=== PATIENT | female | born 1975 | race Caucasian/White ===

== ENCOUNTER 2016-07-25 15:50 | Emergency (ER) | payer MEDICAID ==
[~2016-07-25] VITALS: Ht 162.6 cm; Wt 94.7 kg
[~2016-07-25 15:50] MED LIST: AMOX500T2 PO; HYDR-3989 PO; IBUP-1724 PO
--- OUTSIDE RECORDS SUMMARY | 2016-07-25 15:54 | XMS REPORT | Continuity of Care Document ---
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 Role Phone ANNEL TAN Primary Care Physician [phone] Insurance Providers Payer Name Policy Number Subscriber Name Relationship [employer] [id number] Stacy Horowitz 01 Self / Same As Patient Chief Complaint and Reason for Visit Chief Complaint Knee Pain Reason for Visit [id number] Problems Medical Problems Problem Onset Date Status Paresthesia Unknown Active Knee pain, left Unknown Active Medications Medication Dose Route Sig Days/Qty Instructions Order Date Discontinued Date Status Hydrocodone-Acetaminophen 1 Tab PO Every 6 hours as needed 15 Qty for pain 11/08/13 Active Social History Social History Problem Response Recorded Date/Time Smoking Status Former smoker 11/08/2013 5:47am Query Response Start Date Stop Date Smoking Status Former smoker Hospital Discharge Instructions No hospital discharge instructions. Plan of Care Discharge Date 11/08/13 6:55am Disposition 01 HOME, SELF-CARE Condition at Discharge Stable Instructions/Education Provided Knee Pain (ED) Forms Provided Work Release Prescriptions See Medications Section Referrals ANNEL TAN LAWRENCE P MD Functional Status No functional status results. Allergies, Adverse Reactions, Alerts Allergen Type Severity Reaction Status Last Updated No Known Allergies Active 11/08/13 Immunizations No immunization records. Vital Signs Acute Vital Signs Vital Response Date/Time Blood Pressure 94/61 mm Hg 11/08/2013 6:40am Blood Pressure Mean 72 mm Hg 11/08/2013 6:40am Pulse 11/08/2013 6:40am Pulse Rate: ED 78 bpm 11/08/2013 6:40am Results No known relevant diagnostic tests, laboratory data and/or discharge summary. Procedures No known history of procedures. Encounters Encounter Location Date/Time Departed Emergency Room [facility] 11/08/13 5:40am Departed Emergency Room [facility] 10/17/13 8:58pm Departed Emergency Room [facility] 08/17/13 2:35pm Discharged Recurring [facility] 08/17/13 1:30pm Recent Diagnosis
--- OUTSIDE RECORDS SUMMARY | 2016-07-25 15:54 | XMS REPORT | Continuity of Care Document ---
Author Author [facility] Organization [facility] Address Unknown Phone Unavailable Support Name Relationship Address Phone ANNEL TAN MD Caregiver [address] [place] [phone] JENN DICKSON MD Caregiver [address] [place] [place] [address] ARISTIDES HOROWITZASHLEY GLEASONE Next Of Kin Unknown [phone] Insurance Providers Payer Name Policy Number Subscriber Name Relationship Self Pay Stacy Horowitz 18 Self Advance Directives Directive Response Recorded Date/Time Advanced Directives Type None 06/21/14 9:00am Problems Medical Problems Problem Onset Date Status Headache Unknown Active Headache Unknown Active Musculoskeletal chest pain Unknown Active Musculoskeletal chest pain Unknown Active Strain of left knee Unknown Active Strain of left knee Unknown Active Medications Medication Dose Route Sig Days/Qty Instructions Order Date Discontinued Date Status [Naprosyn] DAILY 09/12/09 06/19/10 Discontinued Acetaminophen 500 Mg PO NEEDED 06/19/10 08/06/10 Discontinued Acetaminophen 500 Mg PO NEEDED 11/10/12 Active Ibuprofen 200 Mg PO NEEDED 11/10/12 Active Diclofenac Sodium 1 Tab PO TWICE DAILY WITH MEALS 30 Qty 06/14/14 Active Tramadol HCl 50 Mg PO Every 6 Hours PRN PAIN 30 Qty 06/21/14 Active Social History Social History Problem Response Recorded Date/Time Chewing Tobacco Status No 11/09/2012 10:59am Hx Substance Use No 06/21/2014 9:00am Hx Alcohol Use No 06/21/2014 9:00am Has the pt used tobacco in the last 12 months Yes 11/09/2012 10:59am Tobacco Usage none 06/14/2014 10:07am Query Response Start Date Stop Date Smoking Status Former smoker Hospital Discharge Instructions No hospital discharge instructions. Plan of Care No plan of care. Functional Status Query Response Date Recorded Physical Hygiene Self June 21, 2014 9:00am Disabilities None June 21, 2014 9:00am Devices Used None June 21, 2014 9:00am Dressing Self June 21, 2014 9:00am Ambulation Self June 21, 2014 9:00am Diet Self June 21, 2014 9:00am Mental Status Alert Oriented June 21, 2014 9:00am Disabilities None June 21, 2014 9:00am Devices Used None June 21, 2014 9:00am Physical Hygiene Self June 21, 2014 9:00am Dressing Self June 21, 2014 9:00am Ambulation Self June 21, 2014 9:00am Diet Self June 21, 2014 9:00am Allergies, Adverse Reactions, Alerts Allergen Type Severity Reaction Status Last Updated Oxybutynin Allergy Intermediate N/V Active 06/21/14 Immunizations Name Given Type Hx Influenza Vaccination Y JAN 2010 Historical Hx Pneumococcal Vaccination No Historical Hx Influenza Vaccination Y JAN 2010 Historical Hx Tetanus Diptheria Y 2007 Historical Vital Signs Acute Vital Signs Vital Response Date/Time Temperature (Fahrenheit) 97.8 deg F (96.8 - 99.1) Temperature (Calculated Celsius) 36.28874 degrees C (36.0 - 37.3) Pulse Rate (adult) 75 bpm (60 - 100) Respiratory Rate 16 breaths/min (10 - 20) O2 Sat by Pulse Oximetry 97 % (90 - 100) Blood Pressure 120/74 mm Hg Height 5 ft 2 in Weight 225 lb Body Mass Index 41.0 kg/m^2 Results Test Source Date Result Interp. Ref. Range Comments D-Dimer June 14, 2014 9:03am < 150 NG/ML 0-230 <230 NG/ML D-DU= PRESUMPTIVE NEGATIVE FOR PE OR DVT>230 NG/ML D-DU=ADDITIONAL EVAL FOR PE OR DVT RECOMMENDED Activated Partial Thromboplast Time June 14, 2014 9:03am 31.9 SEC N 24- 36 Ordering r/o VTE Yes Prothromb Time International Ratio June 14, 2014 9:03am 1.06 N 0.81- 1.09 THERAPUTIC RANGE=2.00-3.00 FOR ANTI-THROMBOSIS THERAPUTIC RANGE=2.50- 3.50 FOR IMPLANTED VALVE JG-Mke-G-Type Natriuretic Peptide June 14, 2014 9:03am 32 PG/ML N 0- 175 Rule in cut points: <50 years old=450; 50-75 years old=900; >75 years old=1800; When utilizing ProBNP rule-in cut points, adjustment for impaired renal function is typically not required. Troponin I June 14, 2014 9:03am < 0.012 ng/ml 0-0.12 Alanine Aminotransferase (ALT/SGPT) June 14, 2014 9:03am 30 U/L N 9-52 Aspartate Amino Transf (AST/SGOT) June 14, 2014 9:03am 20 U/L N 14-36 Albumin/Globulin Ratio June 14, 2014 9:03am 1.1 RATIO N 1.1-2.2 Globulin June 14, 2014 9:03am 3.4 G/DL N 2.4-3.6 Albumin June 14, 2014 9:03am 3.9 G/DL N 3.5-5.0 Total Protein June 14, 2014 9:03am 7.3 G/DL N 6.3-8.2 Alkaline Phosphatase June 14, 2014 9:03am 99 U/L N 38-126 Total Bilirubin June 14, 2014 9:03am 0.50 MG/DL N 0.20-1.30 Calcium Level June 14, 2014 9:03am 9.2 MG/DL N 8.4-10.2 Calculated Osmolality June 14, 2014 9:03am 274 MOSM/KG N 261-280 Glucose Level June 14, 2014 9:03am 102 MG/DL N 65-110 Glomerular Filtration Rate Calc June 14, 2014 9:03am 81 - BUN/Creatinine Ratio June 14, 2014 9:03am 13 RATIO N 6-26 Creatinine June 14, 2014 9:03am 0.8 MG/DL N 0.7-1.2 Blood Urea Nitrogen June 14, 2014 9:03am 10.0 MG/DL N 7-17 Anion Gap June 14, 2014 9:03am 13 MEQ/L N 5-15 Carbon Dioxide Level June 14, 2014 9:03am 25 MEQ/L N 22-30 Chloride Level June 14, 2014 9:03am 105 MEQ/L N 98-107 Potassium Level June 14, 2014 9:03am 4.3 MEQ/L N 3.6-5 Sodium Level June 14, 2014 9:03am 143 MEQ/L N 134-144 Turbidity June 14, 2014 9:03am < 20 0-20 Chemistry Specimen Hemolysis June 14, 2014 9:03am < 15 0-25 0-25: No Hemolysis.26-70: Slight Hemolysis - can falsely elevate K and Urine Protein. 71-285: Moderate Hemolysis - can falsely elevate K, Troponin I, CA 19-9, PTH, CSF GLucose, and Urine Protein, and can falsely decrease Phenytoin. 286-999: Gross Hemolysis - can falsely elevate K, Troponin I, CA 19-9, PTH, CSF Glucose, and Urine Protine, and can falsely decrease Phenytoin. Recommend specimen recollection. Icterus Index June 14, 2014 9:03am < 2 0-7 Immature Granulocyte # (Auto) June 14, 2014 9:03am 0.01 T/MM3 N 0.00- 0.03 Basophils # (Auto) June 14, 2014 9:03am 0.0 T/MM3 N 0-0.2 Eosinophils # (Auto) June 14, 2014 9:03am 0.1 T/MM3 N 0-0.5 Monocytes # (Auto) June 14, 2014 9:03am 0.4 T/MM3 N 0-0.8 Lymphocytes # (Auto) June 14, 2014 9:03am 1.6 T/MM3 N 1-4.8 Neutrophils # (Auto) June 14, 2014 9:03am 2.7 T/MM3 N 1.8-7.7 Immature Granulocyte % (Auto) June 14, 2014 9:03am 0.2 % N 0.0-0.5 Basophils (%) (Auto) June 14, 2014 9:03am 0.6 % N 0-2 Eosinophils (%) (Auto) June 14, 2014 9:03am 2.3 % N 0-4 Monocytes (%) (Auto) June 14, 2014 9:03am 8.2 % N 0-9.0 Lymphocytes (%) (Auto) June 14, 2014 9:03am 32.8 % N 23-45 Neutrophils (%) (Auto) June 14, 2014 9:03am 55.9 % N 33-66 Mean Platelet Volume June 14, 2014 9:03am 9.3 UM3 L 9.4-12.4 Platelet Count June 14, 2014 9:03am 253 T/MM3 N 130-400 RDW Standard Deviation June 14, 2014 9:03am 39.1 FL N 36.9-50.2 Mean Corpuscular Hemoglobin Concent June 14, 2014 9:03am 34.0 GM/DL N 31-37 Mean Corpuscular Hemoglobin June 14, 2014 9:03am 29.6 UUG N 26-34 Mean Corpuscular Volume June 14, 2014 9:03am 87.2 UM3 N 80-100 Hematocrit June 14, 2014 9:03am 41.5 % N 36-46 Hemoglobin June 14, 2014 9:03am 14.1 GM/DL N 12-16 Red Blood Count June 14, 2014 9:03am 4.76 M/MM3 N 4.00-5.20 White Blood Count June 14, 2014 9:03am 4.8 T/MM3 N 4.5-11.0 Bacterial Antigen Specimen Source November 10, 2012 11:50am Csf - CSF Basophils November 10, 2012 11:50am 0 % - COMMENT [facility] WILL CALL CSF Color November 10, 2012 11:50am Colorless - COMMENT [facility] WILL CALL CSF Eosinophils % November 10, 2012 11:50am 0 % - COMMENT [facility] WILL CALL CSF Glucose November 10, 2012 11:50am 47 MG/DL N 40-70 COMMENT [facility] WILL CALL CSF Lymphocytes November 10, 2012 11:50am 100 % - COMMENT [facility] WILL CALL CSF Monocytes November 10, 2012 11:50am 0 % - COMMENT [facility] WILL CALL CSF Neutrophils November 10, 2012 11:50am 0 % - COMMENT [facility] WILL CALL CSF RBC November 10, 2012 11:50am 22 /MM3 H 0-0 COMMENT [facility] WILL CALL CSF Total Nucleated Cell Count November 10, 2012 11:50am 1 /MM3 N 0-5 COMMENT [facility] WILL CALL CSF Total Protein November 10, 2012 11:50am 39 MG/DL N 12-60 COMMENT [facility] WILL CALL CSF Turbidity November 10, 2012 11:50am Clear - COMMENT [facility] WILL CALL Group B Streptococcus Antigen November 10, 2012 11:50am Negative - Influenza Type B Antigen November 10, 2012 11:50am Negative - N. meningitidis B/E. coli K1 November 10, 2012 11:50am Negative - N. meningitidis C/W 135 November 10, 2012 11:50am Negative - Streptococcus pneumoniae Antigen November 10, 2012 11:50am Negative - Urine Bilirubin September 12, 2009 10:53am Negative - Has specimen been collected/obtained? Y Urine Blood September 12, 2009 10:53am Negative - Has specimen been collected/obtained? Y Urine Collection Type September 12, 2009 10:53am Voided - Has specimen been collected/obtained? Y Urine Color September 12, 2009 10:53am Yellow - Has specimen been collected/obtained? Y Urine Glucose (UA) September 12, 2009 10:53am Negative - Has specimen been collected/obtained? Y Urine Ketones September 12, 2009 10:53am Negative - Has specimen been collected/obtained? Y Urine Leukocyte Esterase September 12, 2009 10:53am Negative - Has specimen been collected/obtained? Y Urine Nitrite September 12, 2009 10:53am Negative - Has specimen been collected/obtained? Y Urine Test June 20, 2010 9:55am Negative - Has specimen been collected/obtained? Y Urine Protein September 12, 2009 10:53am Negative - Has specimen been collected/obtained? Y Urine Specific [place] September 12, 2009 10:53am 1.005 L - Has specimen been collected/obtained? Y Urine Turbidity September 12, 2009 10:53am Clear - Has specimen been collected/obtained? Y Urine Urobilinogen September 12, 2009 10:53am Normal EU/DL - Has specimen been collected/obtained? Y Urine pH September 12, 2009 10:53am 7.0 - Has specimen been collected/ obtained? Y Neisseria meningitidis A/Y Antigen November 10, 2012 11:50am Negative - CSF Other Cells % November 10, 2012 11:50am 0 % - COMMENT [facility] WILL CALL Urine Microscopic Not Indicated September 12, 2009 10:53am Not indicated - Has specimen been collected/obtained? Y Gram Stain Cerebral Spinal Fluid November 10, 2012 11:50am Name: STACY HOROWITZ Unit #: [id number] : 1975 Sex: F Loc / Svc: ED DOS: 06/21/14 Signed Report #: [id number] DIAGNOSTIC IMAGING REPORT TYPE OF EXAM: KNEE LEFT 3 VIEWS Dictated By: LAURO RODRIGUEZ MD Indication: ITS.REASON: LEFT KNEE PAIN after a fall KNEE LEFT 3 VIEWS Comparison: None Findings: There is no acute fracture, dislocation or malalignment identified. There is a small calcific fragment adjacent to the medial aspect of the tibial plateau suggesting old trauma or old MCL injury. Mild medial compartment joint space narrowing. Small tricompartmental osteophytes. Impression: No acute osseous abnormality. . Procedures Procedure Status Date Provider(s) HYDRATE IV INFUSION ADD-ON completed 06/14/14 HYDRATE IV INFUSION ADD-ON completed 06/14/14 HYDRATE IV INFUSION ADD-ON completed 06/14/14 THER/PROPH/DIAG INJ IV PUSH completed 06/14/14 TX/PRO/DX INJ NEW DRUG ADDON completed 06/14/14 Encounters Encounter Location Date/Time Departed Emergency Room [facility] 06/21/14 8:59am Departed Emergency Room [facility] 06/14/14 8:46am Recent Diagnosis
--- OUTSIDE RECORDS SUMMARY | 2016-07-25 15:54 | XMS REPORT | Continuity of Care Document ---
Author Author [facility] Organization [facility] Address Unknown Phone Unavailable Support Name Relationship Address Phone ANNEL TAN MD Caregiver [address] [place] [address] Unavailable JENN DICKSON MD Caregiver [address] [place] [address] Unavailable JERO HOROWITZ Next Of Kin Unknown [phone] Insurance Providers Guarantor Stacy Horowitz Address [address] [place] [address] Email DENIED 16 Payer [facility] Policy Number [id number] Subscriber's Name Stacy Horowitz Relationship 18 Self Effective Date 16 Expiration Date 16 Advance Directives Directive Response Recorded Date/Time Advanced Directives Type None 05/15/16 6:00am Chief Complaint and Reason for Visit Chief Complaint Toothache Reason for Visit Infected dental caries Problems Active Problems Medical Problem Onset Date Status Flank pain Unknown Acute Headache Unknown Acute Headache Unknown Acute Musculoskeletal chest pain Unknown Acute Musculoskeletal chest pain Unknown Acute Strain of left knee Unknown Acute Strain of left knee Unknown Acute Upper respiratory infection Unknown Acute Past Problems Medical Problem Onset Date Infected dental caries Unknown Medications Current Home Medications Medication Dose Units Route Directions Days Qty Instructions Start Date Acetaminophen/Hydrocodone Bitart ([place] 5-325 Tablet) 5-325 Tablet 1-2 Tab Oral Every 6 Hours as needed for Pain 20 Tablet 05/15/16 Amoxicillin 500 Mg Tablet 500 Mg Oral Three Times A Day 10 Days 11/21 Ibuprofen 200 Mg Tablet 2 Tab Oral Every 4 Hours as needed for Pain 07/03/15 Past Home Medications Medication Directions Ordered Status Acetaminophen (Tylenol Extra Strength) 500 Mg Tablet, 500 Mg Oral As Needed 06/19/10 Discontinued Benzonatate 100 Mg Capsule, 1 Cap Oral Three Times A Day as needed for Cough 12/16/14 Discontinued Ibuprofen 800 Mg Tablet, 1 Tab Oral Every 8 Hours as needed for Pain Discontinued Metoclopramide Hcl (Reglan) 10 Mg Tablet, 10 Mg Oral Four Times Daily Discontinued Naprosyn , Daily 09/12/09 Discontinued No Routine Meds , 11/22/14 Discontinued Social History Social History Problem Response Recorded Date/Time Onset Date Status Chewing Tobacco Status No 11/09/2012 10:59am Not Applicable Not Applicable Hx Substance Use No 05/15/2016 6:05am Not Applicable Not Applicable Hx Alcohol Use No 05/15/2016 6:05am Not Applicable Not Applicable Has the pt used tobacco in the last 12 months Yes 11/09/2012 10:59am Not Applicable Not Applicable Tobacco Usage none 06/14/2014 10:07am Not Applicable Not Applicable Query Response Start Date Stop Date Smoking Status Current every day smoker Hospital Discharge Instructions No hospital discharge instructions. Plan of Care Discharge Date 05/15/16 6:30am Disposition 01 DISCHARGED HOME, SELF-CARE Condition at Discharge Stable Instructions/Education Provided Dental Abscess (ED) Prescriptions See Medication Section Care Plan and Goals Physician Care Plan Problem: Right upper dental pain Goal: Follow up with primary care provider Instructions: Take medications and follow care plan as discussed/written Functional Status No functional status results. Allergies, Adverse Reactions, Alerts Allergen Type Severity Reaction Status Last Updated Oxybutynin Allergy Intermediate N/V Active 05/15/16 Immunizations Query Response on File Recorded Date/Time Hx Influenza Vaccination No 12/16/14 9:55pm Hx Pneumococcal Vaccination No 12/16/14 9:55pm Hx Influenza Vaccination No 12/16/14 9:55pm Hx Tetanus Diptheria Y 2008 12/16/14 9:55pm Influenza Vaccine Hx UNKNOWN 05/15/16 6:05am Tdap Vaccine Hx NOT CURRENT 12/29/15 3:55pm Vital Signs Acute Vital Signs Vital Response Date/Time Temperature (Fahrenheit) 97.7 deg F (96.8 - 99.1) 05/15/2016 6:30am Temperature (Calculated Celsius) 36.22211 degrees C (36.0 - 37.3) 05/15/2016 6:30am Pulse Rate (adult) 74 bpm (60 - 100) 05/15/2016 6:30am Respiratory Rate 14 breaths/min (10 - 20) 05/15/2016 6:30am O2 Sat by Pulse Oximetry 98 % (90 - 100) 05/15/2016 6:30am Blood Pressure 166/94 mm Hg 05/15/2016 6:30am Height (Feet) 5 feet 05/15/2016 6:00am Height (Inches) 2.00 inches 05/15/2016 6:00am Weight (Kilograms) 99.100 kg 05/15/2016 6:00am Body Mass Index (BMI) 39.0 05/15/2016 6:00am Results No known relevant diagnostic tests, laboratory data and/or discharge summary. Procedures No known history of procedures. Encounters Encounter Location Arrival/Admit Date Discharge/Depart Date Attending Provider Departed Emergency Room [facility] 05/15/16 5:57am 05/15/16 6: 30am JENN DICKSON MD Recent Diagnosis
--- OUTSIDE RECORDS SUMMARY | 2016-07-25 15:54 | XMS REPORT | Continuity of Care Document ---
Author Author [facility] Organization [facility] Address Unknown Phone Unavailable Support Name Relationship Address Phone BRIANA CLARKE MD Caregiver [address] [address] ANNEL TAN MD Caregiver [address] [place] [phone] CARLOS MANUEL JERO GUY Next Of Kin Unknown [phone] Insurance Providers Payer Name Policy Number Subscriber Name Relationship Self Pay Stacy Horowitz 18 Self Problems Medical Problems Problem Onset Date Status Headache Unknown Active Headache Unknown Active Musculoskeletal chest pain Unknown Active Musculoskeletal chest pain Unknown Active Medications Medication Dose Route Sig Days/Qty Instructions Order Date Discontinued Date Status [Naprosyn] DAILY 09/12/09 06/19/10 Discontinued Acetaminophen 500 Mg PO NEEDED 06/19/10 08/06/10 Discontinued Acetaminophen 500 Mg PO NEEDED 11/10/12 Active Ibuprofen 200 Mg PO NEEDED 11/10/12 Active Diclofenac Sodium 1 Tab PO TWICE DAILY WITH MEALS 30 Qty 06/14/14 Active Social History Social History Problem Response Recorded Date/Time Chewing Tobacco Status No 11/09/2012 10:59am Hx Substance Use No 06/14/2014 8:46am Hx Alcohol Use No 06/14/2014 8:46am Has the pt used tobacco in the last 12 months Yes 11/09/2012 10:59am Tobacco Usage none 06/14/2014 10:07am Query Response Start Date Stop Date Smoking Status Former smoker Hospital Discharge Instructions No hospital discharge instructions. Plan of Care No plan of care. Functional Status Query Response Date Recorded Physical Hygiene Self June 14, 2014 8:46am Disabilities Visual June 14, 2014 8:46am Devices Used Glasses June 14, 2014 8:46am Dressing Self June 14, 2014 8:46am Ambulation Self June 14, 2014 8:46am Diet Self June 14, 2014 8:46am Mental Status Alert Oriented June 14, 2014 8:46am Disabilities Visual June 14, 2014 8:46am Devices Used Glasses June 14, 2014 8:46am Physical Hygiene Self June 14, 2014 8:46am Dressing Self June 14, 2014 8:46am Ambulation Self June 14, 2014 8:46am Diet Self June 14, 2014 8:46am Allergies, Adverse Reactions, Alerts Allergen Type Severity Reaction Status Last Updated Oxybutynin Allergy Intermediate N/V Active 06/14/14 Immunizations Name Given Type Hx Influenza Vaccination Y JAN 2010 Historical Hx Pneumococcal Vaccination No Historical Hx Influenza Vaccination Y JAN 2010 Historical Hx Tetanus Diptheria Y 2007 Historical Vital Signs Acute Vital Signs Vital Response Date/Time Temperature (Fahrenheit) 97.3 deg F (96.8 - 99.1) Temperature (Calculated Celsius) 36.88340 degrees C (36.0 - 37.3) Pulse Rate (adult) 79 bpm (60 - 100) Respiratory Rate 16 breaths/min (10 - 20) O2 Sat by Pulse Oximetry 98 % (90 - 100) Blood Pressure 117/70 mm Hg Height 5 ft 2 in Weight 227 lb Body Mass Index 41.0 kg/m^2 Results [...] ANTI-THROMBOSIS THERAPUTIC RANGE=2.50- 3.50 FOR IMPLANTED VALVE FY-Iql-I-Type Natriuretic Peptide June 14, 2014 9:03am 32 [...] Has specimen been collected/obtained? Y Urine Specific [place] September 12, 2009 10:53am 1.005 L - [...] 0 % - COMMENT [facility] WILL CALL Urine Microscopic Not Indicated September 12, 2009 10:53am Not indicated - Has specimen been collected/obtained? Y Gram Stain Cerebral Spinal Fluid November 10, 2012 11:50am Name: STACY HOROWITZ Unit #: [id number] : 1975 Sex: F Loc / Svc: ED DOS: 06/14/14 Signed Report #: [id number] DIAGNOSTIC IMAGING REPORT TYPE OF EXAM: CHEST 1 VIEW Dictated By: LAURO RODRIGUEZ MD Indication: ITS.REASON: chest pain CHEST 1 VIEW: Comparison: None FINDINGS: The lungs are clear. There is no abnormal airspace opacity, pleural effusion or pneumothorax identified. The heart size, pulmonary vasculature and mediastinum are within normal limits. No significant skeletal abnormality is seen. IMPRESSION: No acute cardiopulmonary abnormality. . Procedures No known history of procedures. Encounters Encounter Location Date/Time Registered Emergency Room [facility] 06/14/14 8:46am Recent Diagnosis
--- OUTSIDE RECORDS SUMMARY | 2016-07-25 15:54 | XMS REPORT | Continuity of Care Document ---
Author Author [facility] Organization [facility] Address Unknown Phone Unavailable Care Team Providers Care Gill Box Fixer Name Role Phone ANNEL TAN MD Primary Care Physician [phone] Insurance Providers Payer Name Policy Number Subscriber Name Relationship Murtaza [employer] [id number] Stacy Horowitz 19 Self Problems Medical Problems Problem Onset Date Status Headache Unknown Active Headache Unknown Active Medications Medication Dose Route Sig Days/Qty Instructions Order Date Discontinued Date Status [Naprosyn] DAILY 09/12/09 06/19/10 Discontinued Acetaminophen 500 Mg PO NEEDED 06/19/10 08/06/10 Discontinued Acetaminophen 500 Mg PO NEEDED 11/10/12 Active Ibuprofen 200 Mg PO NEEDED 11/10/12 Active Social History Social History Problem Response Recorded Date/Time Smoking Status Current every day smoker 01/10/2014 3:54pm When did patient START smoking? AGE 16 01/10/2014 3:54pm Chewing Tobacco Status No 11/09/2012 10:59am Hx Substance Use No 01/10/2014 3:54pm Hx Alcohol Use Y 1X EVERY 3-4 MONTHS 01/10/2014 3:54pm Has the pt used tobacco in the last 12 months Yes 11/09/2012 10:59am Query Response Start Date Stop Date Smoking Status Current every day smoker Hospital Discharge Instructions No hospital discharge instructions. Plan of Care No plan of care. Functional Status Query Response Date Recorded Physical Hygiene Self January 10, 2014 3:54pm Disabilities Visual January 10, 2014 3:54pm Devices Used Glasses January 10, 2014 3:54pm Dressing Self January 10, 2014 3:54pm Ambulation Self January 10, 2014 3:54pm Diet Self January 10, 2014 3:54pm Mental Status Alert Oriented January 10, 2014 3:54pm Disabilities Visual January 10, 2014 3:54pm Devices Used Glasses January 10, 2014 3:54pm Physical Hygiene Self January 10, 2014 3:54pm Dressing Self January 10, 2014 3:54pm Ambulation Self January 10, 2014 3:54pm Diet Self January 10, 2014 3:54pm Allergies, Adverse Reactions, Alerts Allergen Type Severity Reaction Status Last Updated Oxybutynin Allergy Intermediate N/V Active 01/10/14 Immunizations Name Given Type Hx Influenza Vaccination Y JAN 2010 Historical Hx Pneumococcal Vaccination No Historical Hx Influenza Vaccination Y JAN 2010 Historical Hx Tetanus Diptheria Y 2007 Historical Vital Signs Acute Vital Signs Vital Response Date/Time Temperature (Fahrenheit) 97.3 deg F (96.8 - 99.1) Temperature (Calculated Celsius) 36.47547 degrees C (36.0 - 37.3) Pulse Rate (adult) 98 bpm (60 - 100) Respiratory Rate 16 breaths/min (10 - 20) O2 Sat by Pulse Oximetry 96 % (90 - 100) Blood Pressure 130/76 mm Hg Height 5 ft 2 in Weight 220 lb Body Mass Index 40.0 kg/m^2 Results Test Source Date Result Interp. Ref. Range Comments Bacterial Antigen Specimen Source November 10, 2012 [...] Has specimen been collected/obtained? Y Urine Specific [place] September 12, 2009 10:53am 1.005 L - [...] 10, 2012 11:50am 0 % - COMMENT [facility] WILL CALL Urine Microscopic Not Indicated September 12, 2009 10:53am Not indicated - Has specimen been collected/obtained? Y Gram Stain Cerebral Spinal Fluid November 10, 2012 11:50am Procedures No known history of procedures. Encounters Encounter Location Date/Time Departed Emergency Room [facility] 01/10/14 3:25pm Recent Diagnosis
--- OUTSIDE RECORDS SUMMARY | 2016-07-25 15:54 | XMS REPORT | Continuity of Care Document ---
Author Author [facility] Organization [facility] Address Unknown Phone Unavailable Care Team Providers Care Loom Starter Name Role Phone ANNEL TAN MD PP Unavailable Insurance Providers Payer Name Policy Number Subscriber Name Relationship Murtaza [employer] [id number] Stacy Horowitz 19 Self Problems No Known Problems or Medical conditions. Family History History Response Recorded Date/Time HX of Orthopedic Surgeries Y LT KNEE SCOPE 11/09/12 10:59am Hx Abdominal Surgery N 11/09/12 10:59am HX Cerebrovascular Accident N 11/09/12 10:59am Hx Seizures N 11/09/12 10:59am Hx Angina N 11/09/12 10:59am Hx Congestive Heart Failure N 11/09/12 10:59am Hx Heart Attack N 11/09/12 10:59am Hx Hypertension N HX OF IN THE PAST 11/09/12 10:59am Hx Chronic Obstructive Pulmonary Disease (COPD) Y 11/09/12 10:59am Hx Diabetes Y 'EARLY ONSET BUT NOT FULL BLOWN YET' 11/09/12 10:59am Hx Clotting Problems N 11/09/12 10:59am Hx Cancer N 11/09/12 10:59am Hx MRSA N 11/09/12 10:59am HX of Cardiac Surgeries N 11/09/12 10:59am HX of Reproductive Surgeries Y TUBAL LIGATION 11/09/12 10:59am HX of Endocrine Surgeries N 11/09/12 10:59am HX of Throat Surgery N 11/09/12 10:59am HX of Neurological Surgeries N 11/09/12 10:59am HX of Genitourinary Surgeries N 11/09/12 10:59am Neurological migraines headaches concussion 12/17/10 11:53am Social History History Response Recorded Date/Time Smoking Status Current every day smoker 11/09/12 10:59am Chewing Tobacco Status N 11/09/12 10:59am Hx Substance Use N 08/05/13 10:59am Hx Alcohol Use Y 1X EVERY 3-4 MONTHS 11/09/12 10:59am Has the pt used tobacco in the last 12 months Y 11/09/12 10:59am Allergies, Adverse Reactions, Alerts Allergen Type Severity Reaction Last Updated Oxybutynin Allergy Intermediate N/V 12/17/10 Medications Medication Dose Units Route Sig Qty Days Cyclobenzaprine Hcl (Flexeril) 5 Mg PO PRN Ibuprofen 200 Mg PO PRN Acetaminophen (Tylenol Extra Strength) 500 Mg PO PRN Immunizations Name Given Type Hx Influenza Vaccination Y JAN 2010 H Hx Pneumococcal Vaccination N H Response Recorded Date/Time Status not known Unknown Results No Known Relevant Diagnostic Tests, Laboratory Data and/or Discharge Summary. Procedures Procedure Code Date KNEE ARTHROSCOPY/SURGERY 55859 06/20/10 KNEE ARTHROSCOPY/SURGERY 46593 06/20/10 EXPLORATION OF KNEE JOINT [id number] 06/20/10 Gram Stain 11/10/12 Encounters Encounter Location Date/Time Departed Emergency Room [facility] 12/03/11 10:51am
[2016-07-25 15:55] VITALS: BP 144/77; PULSE 105; RESP 20; TEMP 98.1; O2SAT 97; Ht 162.6 cm; Wt 94.7 kg
--- OUTSIDE RECORDS SUMMARY | 2016-07-25 16:24 | XMS REPORT | Continuity of Care Document ---
Author Author [facility] Organization [facility] Address Unknown Phone Unavailable Support Name Relationship Address Phone BRIANA CLAREK MD Caregiver [address] [address] ANNEL TAN MD Caregiver [address] [place] [phone] CARLOS MANUEL JERO GUY Next Of Kin Unknown [phone] Insurance Providers Payer Name Policy Number Subscriber [...] F (96.8 - 99.1) Temperature (Calculated Celsius) 36.28644 degrees C (36.0 - 37.3) Pulse Rate [...] ANTI-THROMBOSIS THERAPUTIC RANGE=2.50- 3.50 FOR IMPLANTED VALVE JE-Wmq-[id number]-Type Natriuretic Peptide June 14, 2014 9:03am 32 [...] Has specimen been collected/obtained? Y Urine Specific [place] September 12, 2009 10:53am 1.005 L - [...] 2012 11:50am Name: STACY HOROWITZ Unit #: [id number] : [id number] Sex: F Loc / Svc: ED DOS: 06/14/14 Signed Report #: [id number] DIAGNOSTIC IMAGING REPORT TYPE OF EXAM: CHEST [...] Encounters Encounter Location Date/Time Registered Emergency Room [facility] 06/14/14 8:46am Recent Diagnosis
--- OUTSIDE RECORDS SUMMARY | 2016-07-25 16:25 | XMS REPORT | Continuity of Care Document ---
Author Author [facility] Organization [facility] Address Unknown Phone Unavailable Care Team Providers Care Casino Assistant Manager Name Role Phone ANNEL TAN Primary Care Physician [phone] Insurance Providers Payer Name Policy Number Subscriber Name Relationship [employer] [id number] Stacy Horowitz 2 Self / Same As Patient Chief Complaint and Reason for Visit Chief Complaint Knee Pain Reason for Visit [id number] Problems Medical Problems Problem Onset Date Status [...] Encounters Encounter Location Date/Time Departed Emergency Room [facility] 11/08/13 5:40am Departed Emergency Room [facility] 10/17/13 8:58pm Departed Emergency Room [facility] 08/17/13 2:35pm Discharged Recurring [facility] 08/17/13 1:30pm Recent Diagnosis
--- OUTSIDE RECORDS SUMMARY | 2016-07-25 16:25 | XMS REPORT | Continuity of Care Document ---
Author Author [facility] Organization [facility] Address Unknown Phone Unavailable Support Name Relationship Address Phone ANNEL TAN MD Caregiver [address] [phone] JENN DICKSON MD Caregiver [address] [place] [address] ARISTIDES HOROWITZASHLEY GLEASONE Next Of Kin Unknown [phone] Insurance Providers Payer Name Policy Number Subscriber [...] F (96.8 - 99.1) Temperature (Calculated Celsius) 36.03750 degrees C (36.0 - 37.3) Pulse Rate [...] ANTI-THROMBOSIS THERAPUTIC RANGE=2.50- 3.50 FOR IMPLANTED VALVE SL-Ywg-T-Type Natriuretic Peptide June 14, 2014 9:03am 32 [...] Has specimen been collected/obtained? Y Urine Specific [place] September 12, 2009 10:53am 1.005 L - [...] 10, 2012 11:50am 0 % - COMMENT [facility] WILL CALL Urine Microscopic Not Indicated September 12, 2009 10:53am Not indicated - Has specimen been collected/obtained? Y Gram Stain Cerebral Spinal Fluid November 10, 2012 11:50am Name: STACY HOROWITZ Unit #: [id number] : 1975 Sex: F Loc / Svc: ED DOS: 06/21/14 Signed Report #: [id number] DIAGNOSTIC IMAGING REPORT TYPE OF EXAM: KNEE [...] Encounters Encounter Location Date/Time Departed Emergency Room [facility] 06/21/14 8:59am Departed Emergency Room [facility] 06/14/14 8:46am Recent Diagnosis
--- OUTSIDE RECORDS SUMMARY | 2016-07-25 16:25 | XMS REPORT | Continuity of Care Document ---
Author Author [facility] Organization [facility] Address Unknown Phone Unavailable Care Team Providers Care Software Consultant Name Role Phone ANNEL TAN MD PP Unavailable Insurance Providers Payer Name Policy Number Subscriber Name Relationship Murtaza [employer] [id number] Stacy Horowitz 19 Self Problems No Known [...] Summary. Procedures Procedure Code Date KNEE ARTHROSCOPY/SURGERY 33832 06/20/10 KNEE ARTHROSCOPY/SURGERY 00237 06/20/10 EXPLORATION OF KNEE JOINT [id number] 06/20/10 Gram Stain 11/10/12 Encounters Encounter Location Date/Time Departed Emergency Room [facility] 12/03/11 10:51am
--- OUTSIDE RECORDS SUMMARY | 2016-07-25 16:25 | XMS REPORT | Continuity of Care Document ---
Author Author [facility] Organization [facility] Address Unknown Phone Unavailable Care Team Providers Care Highway Traffic Control Technician Name Role Phone ANNEL TAN MD Primary Care Physician [phone] Insurance Providers Payer Name Policy Number Subscriber Name Relationship Murtaza [employer] [id number] Stacy Horowitz 19 Self Problems Medical Problems [...] F (96.8 - 99.1) Temperature (Calculated Celsius) 36.92471 degrees C (36.0 - 37.3) Pulse Rate [...] Has specimen been collected/obtained? Y Urine Specific [place] September 12, 2009 10:53am 1.005 L - [...] 10, 2012 11:50am 0 % - COMMENT [facility] WILL CALL Urine Microscopic Not Indicated September 12, 2009 10:53am Not indicated - Has specimen been collected/obtained? Y Gram Stain Cerebral Spinal Fluid November 10, 2012 11:50am Procedures No known history of procedures. Encounters Encounter Location Date/Time Departed Emergency Room [facility] 01/10/14 3:25pm Recent Diagnosis
--- NOTE | 2016-07-25 16:33 | ERPDOC ---
Departure Disposition Decision Date: Jul 25, 2016 Disposition Decision Time: 17:07 Disposition: 01 DISCHARGED HOME, SELF-CARE Impression Impression Impression: Primary Impression: Left knee pain Chronicity: acute Qualified Codes: M25.562 - Pain in left knee Severity: Moderate Condition: Stable Seen By: Mid-level only Referrals: ANNEL TAN MD (PCP) Patient Instructions: Knee Pain (ED) Problems/Meds/Labs Reviewed?: Yes Medications reviewed and manag: Yes Additional Instructions: I do want you to ice and elevate the knee. May wear and lulu wrap or your knee brace as needed for comfort. If this is not improving at all then please follow up with your primary care provider if needed. Follow up care ordered?: Yes Mental Status: Alert HPI - Lower Extremity General Chief Complaint: Fall Stated Complaint: BACK PAIN, LFT KNEE PAIN Time Seen by Provider: 15:55 Source: patient Exam Limitations: no limitations HPI - Lower Extremity Initial Comments She was walking down some stairs today and tripped and fell. She landed on the left knee when she fell. Is having left medial inferior knee pain. Has been able to walk on it since the fall but it is painful. She has a history of trouble with falls in the past. Occurred At: home Onset/Timing: Rapid Duration: 4-6 hrs Severity: moderate Pain/Injury Location: left knee 1 - area of pain Method of Injury: fell Hx of Similar Symptoms: No Quality: sharpness Allergies: Coded Allergies: oxybutynin (Verified Allergy, Intermediate, N/V, 05/15/16) Past History Past Medical History Metabolic: hypercholesterolemia ENMT: dental problems Female: other Neurological: concussion, headaches, migraines Musculoskeletal: other Psychological: anxiety Surgical History Reproductive/: tubal ligation Joint: knee Family History Family PMH: FOUND: [place], diabetes, hypertension Vaccines Hx Influenza Vaccination: No Hx Pneumococcal Vaccination: No Hx Tetanus Diptheria: Yes (2007) Social History Smoking Status: Never smoker Substance Use Type: does not use Alcohol Intake: none Review of Systems Constitutional Constitutional: DENIES: chills, dizziness, fatigue, fever, weakness Musculoskeletal General: joint pain (left knee), joint swelling (left knee), pain (left knee), DENIES: tenderness Integumentary Skin: DENIES: rash Neurological General: DENIES: numbness, tingling, weakness Physical Exam General General Nourishment: well nourished, well developed, appears stated age, no acute distress, adult General Body Habitus: well groomed Vitals and Pain First Documented Vital Signs Date Time Temp Pulse Resp B/P Pulse Ox O2 Delivery O2 Flow Rate FiO2 07/25/16 15:55 98.1 105 20 144/77 97 Room Air Weight: Kilograms: 94.700 Height (feet): 5 Height (inches): 4.00 Triage Pain Scale: RN VS reviewed by Provider: Yes Normal Exams: Neurologic: Patient is alert, and oriented Psychiatric: Patient exhibits, appropriate attention, emotion and affect Musculoskeletal (brief) Musculoskeletal Brief: FOUND: other (There is moderate swelling on the left medial knee and inferior aspect of the knee), tenderness (Mild TTP in the left medial knee), NOT FOUND: deformity, loss of motion (Does have full flexion and extension of the left knee) Differential Diagnoses Considering: Contusion, Dislocation, Fracture, Sprain, Strain Progress Results/Orders Orders Procedure Category Date Status Time Knee Left 3 Views RAD 07/25/16 Taken Progress Progress Xray today was normal. Will go ahead and let her go home today. Ice and elevate and rest the left knee. Follow up with her PCP this week for reevaluation. Xray Xray : Reason for Exam: Knee pain Xray: Knee L Interpretation: Normal MEHDI CRESPO APRN Jul 25, 2016 16:33
[2016-07-25] MEDS ORDERED: IBUP-1547 PO (16:43)
[2016-07-25] MEDS ORDERED: ACET500C43 PO (16:43)
--- NOTE | 2016-07-26 08:12 | DI ---
Indication: ITS.REASON: left knee pain PROCEDURE: KNEE LEFT 3 VIEWS: Encounter: Initial Comparison: December 29, 2015 Findings: There is no acute fracture, dislocation or malalignment identified. Moderate to severe medial compartment joint space narrowing slightly worsened from the comparison. Impression: No acute osseous abnormality. 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 .
== END 2016-07-25 17:22 | disposition home or self-care (01) ==
LOC: ED 15:50
DX: M25.562 Pain in left knee (principal); W10.8XXA Fall (on) (from) other stairs and steps, initial encounter; Y93.01 Activity, walking, marching and hiking; Y92.008 Other place in unspecified non-institutional (private) residence as the place of occurrence of the external cause; Y99.8 Other external cause status